=== PATIENT | female | born 1980 | race Two or more races ===

== ENCOUNTER 2021-03-15 07:19 | Day surgery (SDC) | payer OTHER ==
[2021-03-13 15:22] VITALS: BMI 39.4
[2021-03-15] MEDS ORDERED: methylPREDNISolone ACET (DEPO) 40 MG/1 ML VIAL ONE (08:40)
[2021-03-15] MEDS ORDERED: BUPIVACAINE HCL 150 ML ONE (08:40)
[2021-03-15] MEDS ORDERED: LIDOCAINE HCL 1%, 10 MG/ML (20ML VIAL) ONE (08:40)
[2021-03-15] MEDS ORDERED: MIDAZOLAM HCL 2 MG/2 ML SINGLE DOSE VIAL ONE (08:49)
[2021-03-15] MEDS ORDERED: PROPOFOL 20 ML ONE (08:49)
[2021-03-15] MEDS ORDERED: LIDOCAINE HCL/PF 2% SDV 5ML VIAL ONE (08:53)
[2021-03-15] MEDS ORDERED: ONDANSETRON 4 MG/2 ML VIAL ONE (09:16)
[2021-03-15] MEDS ORDERED: DEXAMETHASONE SOD PHOSPHATE 4 MG/1 ML VIAL ONE (09:16)
[2021-03-15] MEDS ORDERED: ceFAZolin SODIUM 1 GM VIAL ONE (09:32)
[2021-03-15] MEDS ORDERED: ACETAMINOPHEN 1000 MG/100 ML VIAL (NON FORMULARY) IVPB PRN (10:00)
[2021-03-15] MEDS ORDERED: ONDANSETRON 4 MG/2 ML VIAL IVPUSH PRN (10:00)
[2021-03-15] MEDS ORDERED: oxyCODONE HCL 5 MG TABLET PO PRN (10:00)
[2021-03-15] MEDS ORDERED: LACTATED RINGERS SOLUTION 1,000 ML IV SCH (10:00)
[2021-03-15 12:44] VITALS: BP 138/82; PULSE 77; TEMP 97.7
== END 2021-03-15 12:44 | disposition home or self-care (01) ==
LOC: FASU 07:19
PROVIDERS: ATTEND Orthopaedic Surgery
PROC: 0L833ZZ Division of Right Upper Arm Tendon, Percutaneous Approach (ICD-10-PCS; principal; 2021-03-15 09:21)
DX: M77.11 Lateral epicondylitis, right elbow (principal)
CPT/HCPCS: 84703; 94760; J0131